=== PATIENT | female | born 1970 | race Two or more races ===

== ENCOUNTER 2022-01-09 06:52 | Day surgery (SDC) | payer OTHER ==
[2022-01-02 18:06] VITALS: BMI 18.6
[2022-01-09] MEDS ORDERED: LIDOCAINE HCL 1%, 10 MG/ML (20ML VIAL) ONE (07:12)
[2022-01-09] MEDS ORDERED: EPINEPHrine/PF 1 MG/1 ML (1:1,000) AMPULE ONE ×2 (07:13→07:14)
[2022-01-09] MEDS ORDERED: BACITRACIN 15 GM TUBE TOPICAL OINTMENT ONE (07:13)
[2022-01-09] MEDS ORDERED: MIDAZOLAM HCL 2 MG/2 ML SINGLE DOSE VIAL ONE (07:20)
[2022-01-09] MEDS ORDERED: SUCCINYLCHOLINE CHLORIDE 200 MG/10 ML SYRINGE ONE (07:20)
[2022-01-09] MEDS ORDERED: PROPOFOL 60 ML ONE (07:20)
[2022-01-09] MEDS ORDERED: ceFAZolin SODIUM 1 GM VIAL ONE (08:00)
[2022-01-09] MEDS ORDERED: ONDANSETRON 4 MG/2 ML VIAL ONE (08:02)
[2022-01-09] MEDS ORDERED: DEXAMETHASONE SOD PHOSPHATE 4 MG/1 ML VIAL ONE (08:02)
[2022-01-09] MEDS ORDERED: KETOROLAC TROMETHAMINE 30 MG/1 ML VIAL ONE (09:19)
[2022-01-09] MEDS ORDERED: ePHEDrine SULFATE 50 MG/1 ML AMPULE ONE (09:30)
[2022-01-09] MEDS ORDERED: oxyCODONE HCL 5 MG TABLET PO PRN ×3 (10:01→15:56)
[2022-01-09] MEDS ORDERED: ONDANSETRON 4 MG/2 ML VIAL IVPB PRN (10:01)
[2022-01-09] MEDS ORDERED: ALBUTEROL SO4 HFA INHALER IH PRN (10:02)
[2022-01-09] MEDS ORDERED: LACTATED RINGERS SOLUTION 1,000 ML IV SCH ×2 (10:15→16:00)
[2022-01-09] MEDS ORDERED: FENTANYL CITRATE/PF 50 MCG/ML VIAL ONE (11:37)
[2022-01-09 12:18] VITALS: RESP 18; TEMP 97.2
[2022-01-09 14:02] VITALS: BP 116/72; PULSE 70
[2022-01-09] MEDS ORDERED: ACETAMINOPHEN 325 MG TABLET (FP) PO PRN (15:56)
[2022-01-09] MEDS ORDERED: ONDANSETRON 4 MG/2 ML VIAL IVPUSH PRN (15:56)
== END 2022-01-09 14:06 | disposition home or self-care (01) ==
LOC: FASU 06:52
PROVIDERS: ATTEND Plastic Surgery
PROC: 0HRV37Z Replacement of Bilateral Breast with Autologous Tissue Substitute, Percutaneous Approach (ICD-10-PCS; principal; 2022-01-09 08:10)
PROC: 0JD83ZZ Extraction of Abdomen Subcutaneous Tissue and Fascia, Percutaneous Approach (ICD-10-PCS; 2022-01-09 08:10)
DX: N65.0 Deformity of reconstructed breast (principal); Z90.13 Acquired absence of bilateral breasts and nipples
CPT/HCPCS: 94760

== ENCOUNTER 2022-11-20 06:42 | Day surgery (SDC) | payer OTHER ==
[2022-11-07 14:01] VITALS: BMI 18.6
[2022-11-20] MEDS ORDERED: ceFAZolin SODIUM 1 GM VIAL ONE ×3 (07:10→09:54)
[2022-11-20] MEDS ORDERED: BUPIVACAINE HCL/EPINEPHRINE/PF 30 ML VIAL IJ ONE (07:10)
[2022-11-20] MEDS ORDERED: GENTAMICIN SO4 80 MG/2 ML VIAL ONE (07:10)
[2022-11-20] MEDS ORDERED: BUPIVACAINE HCL/PF 2.5 MG/ML - 30 ML VIAL IJ ONE ×2 (07:10→08:44)
[2022-11-20] MEDS ORDERED: PROPOFOL 20 ML ONE (07:21)
[2022-11-20] MEDS ORDERED: MIDAZOLAM HCL 2 MG/2 ML SINGLE DOSE VIAL ONE (07:21)
[2022-11-20] MEDS ORDERED: SUCCINYLCHOLINE CHLORIDE 200 MG/10 ML SYRINGE ONE (07:21)
[2022-11-20] MEDS ORDERED: POLYMYXIN B SULFATE 500,000 UNIT VIAL ONE (07:21)
[2022-11-20] MEDS ORDERED: ALBUTEROL SO4 HFA INHALER IH ONE (07:25)
[2022-11-20] MEDS ORDERED: BUPIVACAINE HCL/PF 0.25% (2.5MG/ML) 10 ML VIAL ONE (07:58)
[2022-11-20] MEDS ORDERED: HYDROmorphone HCL/PF 1 MG/ML VIAL ONE (08:38)
[2022-11-20] MEDS ORDERED: ePHEDrine SULFATE 50 MG/1 ML AMPULE ONE (08:59)
[2022-11-20] MEDS ORDERED: DEXAMETHASONE SOD PHOSPHATE 4 MG/1 ML VIAL ONE (09:54)
[2022-11-20] MEDS ORDERED: ONDANSETRON 4 MG/2 ML VIAL ONE (09:54)
[2022-11-20] MEDS ORDERED: KETOROLAC TROMETHAMINE 30 MG/1 ML VIAL ONE (09:54)
[2022-11-20] MEDS ORDERED: oxyCODONE HCL 5 MG TABLET PO PRN ×3 (10:18→10:24)
[2022-11-20] MEDS ORDERED: ONDANSETRON 4 MG/2 ML VIAL IVPUSH PRN (10:18)
[2022-11-20] MEDS ORDERED: ACETAMINOPHEN 1000 MG/100 ML BAG IVPB ONE (10:23)
[2022-11-20] MEDS ORDERED: ALBUTEROL SO4 HFA INHALER IH PRN ×2 (10:25→12:02)
[2022-11-20] MEDS ORDERED: LACTATED RINGERS SOLUTION 1,000 ML IV SCH ×2 (10:30)
[2022-11-20 12:38] VITALS: TEMP 97
[2022-11-20] MEDS ORDERED: ONDANSETRON 4 MG/2 ML VIAL IVPB PRN (16:20)
[2022-11-20 17:59] VITALS: PULSE 77
[2022-11-20 18:04] VITALS: BP 108/61; RESP 17
== END 2022-11-20 15:00 | disposition home or self-care (01) ==
LOC: FASU 06:42
PROVIDERS: ATTEND Plastic Surgery
PROC: 0HUV0JZ Supplement Bilateral Breast with Synthetic Substitute, Open Approach (ICD-10-PCS; principal; 2022-11-20 08:27)
DX: C50.111 Malignant neoplasm of central portion of right female breast (principal); C50.112 Malignant neoplasm of central portion of left female breast
CPT/HCPCS: 19342; 19380; L8600; 81025; 94760